=== PATIENT | female | born 1945 | race Caucasian/White ===

== ENCOUNTER → 2020-12-23 | Outpatient (CLI) | payer BC, MEDICARE ==
[~2020-12-23] MED LIST: DICL50TA3; ENAL20TA; ESTR1PAT10; HCT25T; LVT.112T; MECL25TA56 PO; METO50TA7; TOLTA4
== END ==
LOC: CARD 11:06
PROVIDERS: ATTEND Internal Medicine
DX: I51.7 Cardiomegaly (principal); I35.8 Other nonrheumatic aortic valve disorders; I35.0 Nonrheumatic aortic (valve) stenosis
CPT/HCPCS: 93306

== ENCOUNTER 2021-08-29 09:36 | Emergency (ER) | payer MEDICARE, OTHER ==
[~2021-08-29] VITALS: Ht 170 cm; Wt 113.0 kg
[2021-08-29] MEDS ORDERED: BENZ100C18 PO (11:52)
--- NOTE | 2021-08-29 11:52 | ED Cough/URI ---
General Chief Complaint: Cough/Cold/Flu Symptoms Stated Complaint: COUGH - CONGESTION - SOA Nursing Triage Note: PT TO ED W/ C/O COUGH, CONGESTION, [place] ONSET X5 DAYS. PT REPORTS HX OF BRONCHITIS, SYMPTOMS SIMILAR. NO OTHER C/O VOICED Source: patient Exam Limitations: no limitations History of Present Illness Date Seen by Provider: August 29, 2021 Time Seen by Provider: 10:20 Initial Comments Patient is a 75-year-old female with a history of hypertension who presents to the emergency room with a chief complaint of cough, nasal congestion a little facial pain and frontal headache for the last 5 days. She has not been taking anything for her symptoms. She states she gets bronchitis about once a year. She is a non-smoker. Nondiabetic. She denies any fever. She is a little short of breath when she gets up and walks. No cardiac history. No complaints of swelling in her lower extremities. No bowel or bladder issues. She is not having green nasal discharge or coughing up green or yellow sputum. Appetite is good. All other review of systems reviewed and negative except as stated. Timing/Duration: week Severity/Quality: moderate, productive cough Prior Episodes/Possible Cause: occasional episodes Modifying Factors: Worse With Coughing Associated Symptoms: cough, earache (bilateral), nasal congestion, shortness of breath, sore throat Allergies and Home Medications Allergies Coded Allergies: codeine (Unverified Adverse Reaction, Mild, 01/25/09) Patient Home Medication List Home Medication List Reviewed: Yes Diclofenac Potassium (Cataflam) 50 Mg Tablet, (Reported) Entered as Reported by: FAN PARSONS on 01/25/09 144 Enalapril Maleate (Enalapril Maleate) 20 Mg Tablet, (Reported) Entered as Reported by: FAN PARSONS on 01/25/09 1447 Estradiol (Estraderm 0.1MG Patch) 0.1 Mg Patch, (Reported) Entered as Reported by: FAN PARSONS on 01/25/09 1449 Hydrochlorothiazide (Hctz) 25 Mg Tab, (Reported) Entered as Reported by: FAN PARSONS on 01/25/09 1448 Levothyroxine Sodium (Synthroid) 112 Mcg Tablet, (Reported) Entered as Reported by: FAN PARSONS on 01/25/09 1448 Meclizine Hcl (Antivert 25 Mg) 25 Mg Tablet, 1 EACH PO QID Prescribed by: STANISLAW GARCIA on 03/25/10 1656 Metoprolol Succinate (Toprol Xl) 50 Mg Tab, (Reported) Entered as Reported by: FAN PARSONS on 01/25/09 1448 Review of Systems Review of Systems Constitutional: see HPI EENTM: ear pain, nose congestion, throat pain Respiratory: cough, short of breath Cardiovascular: no symptoms reported Gastrointestinal: no symptoms reported Genitourinary: no symptoms reported Musculoskeletal: no symptoms reported Skin: no symptoms reported Psychiatric/Neurological: Headache All Other Systems Reviewed Negative Unless Noted: Yes Past Bgeczhh-Nedumt-Bhstlh Hx Patient Social History Tobacco Use?: No Use of E-Cig and/or Vaping dev: No Substance use?: No Alcohol Use?: No Pt feels they are or have been: No Immunizations Up To Date Influenza Vaccine Up-to-Date: Yes; Up-to-Date First/Initial COVID19 Vaccinat: [id number] COVID19 Vaccine [employer]: [employer] Physical Exam Vital Signs - First Documented 08/29/21 09:59 Temp 36.1 Pulse 84 Resp 20 B/P (MAP) 192/88 (122) Pulse Ox 94 O2 Delivery Room Air Capillary Refill : Less Than 3 Seconds Height: '" Weight: lbs. oz. kg; 39.00 BMI Method: General Appearance: WD/WN, no apparent distress Eyes: Bilateral Eye Normal Inspection, Bilateral Eye PERRL, Bilateral Eye EOMI HEENT: PERRL/EOMI, TM abnormal (L) (Effusion noted on left TM with minimal erythema.), pharyngeal erythema (Mild pharyngeal erythema without vesicles or exudate) Neck: non-tender, full range of motion, supple, normal inspection Respiratory: lungs clear, normal breath sounds, no respiratory distress Cardiovascular: regular rate, rhythm Gastrointestinal: non tender, soft Extremities: non-tender, normal inspection, no pedal edema, no calf tenderness Neurologic/Psychiatric: alert, normal mood/affect, oriented x 3 Skin: normal color, warm/dry Progress/Results/Core Measures Suspected Sepsis SIRS Temperature: Pulse: 84 Respiratory Rate: 20 Blood Pressure 192 /88 Mean: 122 Results/Orders Lab Results Laboratory Tests Test 08/29/21 10:20 Range/Units SARS-CoV-2 RNA (RT-PCR) Not Detected Not Detecte My Orders Orders - ASHWIN POLLOCK MD Covid 19 Inhouse Test (08/29/21 10:22) Isolation Central Supply Req (08/29/21 10:22) Vital Signs/I&O 08/29/21 09:59 Temp 36.1 Pulse 84 Resp 20 B/P (MAP) 192/88 (122) Pulse Ox 94 O2 Delivery Room Air Capillary Refill : Less Than 3 Seconds Blood Pressure Mean: 122 Progress Note : Time: 11:53 Progress Note Patient clinically looks well. She was concerned about her elevated blood pressure in spite of taking her medications. I believe this is related to her current infection. She has good appetite, good vital signs. No fever. No purulence in her sputum or nasal discharge. I think supportive care at this time is reasonable. We will suggest Coricidin HBP as well as Flonase nasal spray. I sent Tessalon to her pharmacy. Return precautions have been discussed. She verbalized understanding. All questions are sought and answered. Patient is stable for discharge. Departure Impression Primary Impression: Bronchitis Additional Impression: Sinusitis Qualified Codes: J01.10 - Acute frontal sinusitis, unspecified Disposition: 01 HOME, SELF-CARE Condition: Stable Departure-Patient Inst. Decision time for Depature: 11:51 Referrals: ADRIANNE KENNEY DO (PCP/Family) Primary Care Physician Patient Instructions: Acute Bronchitis Add. Discharge Instructions: Drink plenty of fluids to stay well-hydrated. Take [id number] Coricidin HBP as directed on the packaging for congestion and cough. You can also use [id number] Flonase nasal spray as directed on the packaging for nasal congestion/swelling. I have [facility] a [facility]. If you develop worsening shortness of breath, green nasal discharge or greenish- yellow phlegm with fever greater than 101 please come back to the emergency department for reevaluation. Scripts Benzonatate (TESSALON PERLES) 100 Mg Capsule 100 MG PO TID PRN for cough, #30 CAP Prov: ASHWIN POLLOCK MD 08/29/21 Copy Copies To 1: ADRIANNE KENNEY KATHRYN M MD August 29, 2021 11:52
[2021-08-29 12:01] VITALS: BP 147/98
== END 2021-08-29 12:01 | disposition home or self-care (01) ==
LOC: EDUNIT# 09:36 → ER 09:38
DX: J01.10 Acute frontal sinusitis, unspecified (principal); J40 Bronchitis, not specified as acute or chronic; I10 Essential (primary) hypertension; Z79.899 Other long term (current) drug therapy; Z20.822 Contact with and (suspected) exposure to COVID-19
CPT/HCPCS: 87636